=== PATIENT | male | born 1960 | race Caucasian/White ===

== ENCOUNTER → 2016-06-17 | Day surgery (SDC) | payer MEDICARE, SELFPAY | END | disposition home or self-care (01) | LOC: FAS 07:11 | DX: K43.0 Incisional hernia with obstruction, without gangrene (principal); K21.9 Gastro-esophageal reflux disease without esophagitis; E78.5 Hyperlipidemia, unspecified; F32.9 Major depressive disorder, single episode, unspecified; I10 Essential (primary) hypertension; K85.90 Acute pancreatitis without necrosis or infection, unspecified; J40 Bronchitis, not specified as acute or chronic; E78.00 Pure hypercholesterolemia, unspecified; Z90.49 Acquired absence of other specified parts of digestive tract; Z98.890 Other specified postprocedural states; Z87.891 Personal history of nicotine dependence; Z79.899 Other long term (current) drug therapy | CPT/HCPCS: 93005; C1781; J0690; J1100; J1170; J2405; J2704; J2710; J3010 ==

== ENCOUNTER 2016-09-21 20:00 | Emergency (ER) | payer MEDICARE, SELFPAY | END 2016-09-22 01:50 | disposition home or self-care (01) | LOC: FER 20:00 | DX: K08.89 Other specified disorders of teeth and supporting structures (principal); K21.9 Gastro-esophageal reflux disease without esophagitis; Z79.899 Other long term (current) drug therapy | CPT/HCPCS: J0561 ==

== ENCOUNTER 2020-11-21 12:46 | Emergency (ER) | payer MEDICARE, OTHER ==
[~2020-11-21 12:46] MED LIST: CYCLOBENZAPRINE10 MG PO; CYMBALTA60 MG PO; DOCUPRENE100 MG PO; ESOMEPRAZOLE MA40 MG PO; HYDROCODONE-APA1 TAB PO; LIPITOR40 MG PO; MELOXICAM15 MG PO; NEURONTIN400 MG PO; NORCO 5-325 TA1 EACH PO; NORVASC2.5 MG PO
== END 2020-11-21 15:00 | disposition home or self-care (01) ==
LOC: FER 12:46
DX: M12.9 Arthropathy, unspecified (principal); I10 Essential (primary) hypertension; E78.5 Hyperlipidemia, unspecified; Z87.891 Personal history of nicotine dependence
CPT/HCPCS: 99283